=== PATIENT | female | born 1975 | race African-American/Black ===

== ENCOUNTER 2017-11-03 02:49 | Emergency (ER) | payer BC, OTHER ==
--- NOTE | 2017-11-03 03:15 | ER Document Report ---
ED General - General Chief Complaint: Numbness of Face Stated Complaint: NUMBNESS Time Seen by Provider: 11/03/17 03:13 Notes: Patient is a 42-year-old female presents with complaint of onset of a headache around 1030 11 PM. Approximately 30 minutes after that she started having some numbness into the left side of her face and into her left arm. She also has some intermittent blurred vision and feels as if her eyes twitching. She does have a history of migraine headaches. She said back in May she had piercing done in the right urine that made her headaches go away for the most part. She said this first time she has had a significant headache since that piercing. She says her headaches used to be more global worse as well as more left-sided and has associated numbness which she has not had in the past. No vomiting. No fevers. No recent trauma or injuries. No other complaints at this time. TRAVEL OUTSIDE OF THE [place] IN LAST 30 DAYS: No - Related Data Allergies/Adverse Reactions: No Known Allergies Allergy (Unverified 11/03/17 02:52) Past Medical History - Social History Smoking Status: Never Smoker Frequency of alcohol use: None Drug Abuse: None Family History: Reviewed & Not Pertinent Review of Systems - Review of Systems Notes: My Normal Review Basic REVIEW OF SYSTEMS: CONSTITUTIONAL : Denies fever, chills, or sweats. Denies recent illness. EENT: Denies eye, ear, throat, or mouth pain or symptoms. Denies nasal or sinus congestion. CARDIOVASCULAR: Denies chest pain. RESPIRATORY: Denies cough, cold, or chest congestion. Denies shortness of breath, difficulty breathing, or wheezing. GASTROINTESTINAL: Denies abdominal pain. Denies nausea, vomiting, or diarrhea. MUSCULOSKELETAL: Denies neck or back pain or joint pain or swelling. SKIN: Denies rash or skin lesions. HEMATOLOGIC : Denies easy bruising or bleeding. NEUROLOGICAL: Denies altered mental status or loss of consciousness. Has a headache. No weakness in extremities. Patient does have some numbness of the left side of face and into left arm. ALL OTHER SYSTEMS REVIEWED AND NEGATIVE. Physical Exam - Vital signs Vitals: Temp Pulse Resp BP Pulse Ox 97.5 F 68 16 137/92 H 100 11/03/17 02:54 11/03/17 02:54 11/03/17 02:54 11/03/17 02:54 11/03/17 02:54 - Notes Notes: General Appearance: Well nourished, alert, cooperative, no acute distress, no obvious discomfort. No pain. Vitals: reviewed, See vital signs table. Head: no swelling or tenderness to the head Eyes: PERRL, EOMI, Conjuctiva clear Mouth: No decreasd moisture Throat: No tonsillar inflammation, No airway obstruction, No lymphadenopathy Neck: Supple, no neck tenderness, No thyromegaly Lungs: No wheezing, No rales, No rhonci, No accessory muscle use, good air exchange bilaterally. Heart: Normal rate, Regular rythm, No murmur, no rub Abdomen: Normal BS, soft, No rigidity, No abdominal tenderness, No guarding, no rebound, no abdominal masses, no organomegaly Extremities: strength 5/5 in all extremities, good pulses in all extremities, no swelling or tenderness in the extremities, no edema. Skin: warm, dry, appropriate color, no rash Neuro: speech clear, oriented x 3, normal affect, responds appropriately to questions. Cranial nerves II through XII are intact. Patient can feel me touch her face but says that she still has some numbness to the left side of her face. She does have obvious facial twitching just below left eye. Good strength in all 4 extremities. There is no focal weakness on her exam. Patient can feel me touch all 4 extremities however she is says her left hand still feels a little bit numb despite feel me touch. Patient is able stand and walk without any ataxia. Romberg testing is normal. Course - Re-evaluation Re-evalutation: 11/03/17 03:31 The only neurologic deficit the patient has is that she feels some numbness into the left side of her body. She has no associated weakness. Her NIH scale would only be a 1. She is beyond 4 hours since the onset of her symptoms and therefore she is not a candidate for thrombolytics and she is not someone I would recommend thrombolytics and even if she was within the window being that her NIH score is so low. Also, I suspect this is more likely to be related to a complex migraine being that her symptoms start with a migraine type headache first followed by the vague numbness type symptoms in the left side of her body. CT scan has been ordered. Patient will be treated with migraine cocktail to see if there is resolution of her symptoms. 11/03/17 05:12 CT scan is normal. Do not think subarachnoid hemorrhage is a culprit of the patient's headache as the CT scan was performed within 4 hours of onset of headache and is completely negative and the patient does not appear capacitated in the headache worsens over time as opposed to being maximal in onset. I suspect patient probably is a complex migraine that caused her symptoms. I suspect this because she had numbness without any associated weakness and no other focal neurologic deficits, and her numbness completely resolved with treatment of her headache. This time if the patient states be discharged home. I encouraged her return to ER medially if she has recurrent worsening headaches, any focal weakness or numbness, or she has any further concerns. Patient agrees with plan will be discharged home. Dictation of this chart was performed using voice recognition software; therefore, there may be some unintended grammatical errors. - Vital Signs Vital signs: Temp Pulse Resp BP Pulse Ox 98.0 F 56 L 17 110/68 100 11/03/17 04:52 11/03/17 04:52 11/03/17 04:52 11/03/17 04:52 11/03/17 04:52 - EKG Interpretation by Me Additional EKG results interpreted by me: 11/03/17 03:14 EKG is reviewed and interpreted by me. EKG shows sinus rhythm with a rate of [address] segment elevation or depression. No ischemic T-wave inversions. WA interval, QRS duration, QTc intervals are within normal range. No old EKG available for comparison. Discharge - Discharge Clinical Impression: Paresthesia Headache Qualifiers: Headache type: unspecified Headache chronicity pattern: acute headache Intractability: not intractable Qualified Code(s): R51 - Headache Condition: Good Disposition: HOME, SELF-CARE Additional Instructions: Please follow up with your doctor in 2-3 days for reevaluation. Please take the prescribed Reglan with 25mg of Benadryl if you develop a headache. Please return to the ER if your headache continues despite treatment with the medication. Please return to the ER if you ever develop weakness or numbness into your extremities, facial droop, difficulty walking, or difficulty talking. Prescriptions: Metoclopramide HCl [Reglan 10 mg Tablet] 1 tab PO ASDIR PRN #25 tablet PRN Reason: Forms: Return to Work
[2017-11-03] MEDS ORDERED: DIPHENHYDRAMINE HCL 50 MG/ML VIAL IV ONE (03:19)
[2017-11-03] MEDS ORDERED: METOCLOPRAMIDE HCL INJ/PF 10 MG/2 ML SDV IV ONE (03:19)
[2017-11-03] MEDS ORDERED: NORMAL SALINE 500 ML IV ONE (03:20)
--- NOTE | 2017-11-03 03:48 | RADIOLOGY REPORT (SQ) ---
EXAM DESCRIPTION: CT HEAD WITHOUT IV CONTRAST COMPLETED DATE/TME: 11/03/2017 03:18 CLINICAL HISTORY: headache COMPARISON: None available TECHNIQUE: Axial CT of the head obtained from the skull apex to the skull base without contrast. FINDINGS: No acute intracranial hemorrhage identified. No mass, mass effect, shift of the midline, abnormal extra-axial fluid collection or CT evidence of acute ischemic change identified. The ventricular system is unremarkable. No acute abnormalities of the supratentorial white matter, basal ganglia, cerebellum, or brainstem. Air-fluid levels and mucosal thickening of the maxillary sinuses. No skull fracture identified. Visualized orbits and globes are unremarkable. DLP: 1043.77 mGy-cm IMPRESSION: 1. No acute intracranial abnormality identified. 2. Air-fluid levels with mucosal thickening of the paranasal sinuses. These findings could be seen with acute on chronic inflammatory paranasal sinus disease. This exam was performed according to our departmental dose-optimization program, which includes automated exposure control, adjustment of the mA and/or kV according to patient size and/or use of iterative reconstruction technique.
[2017-11-03 04:53] VITALS: BP 110/68
--- NOTE | 2017-11-03 07:22 | EKG REPORT ---
SEVERITY:- OTHERWISE NORMAL ECG - SINUS RHYTHM ATRIAL PREMATURE COMPLEX : Confirmed by: Eze Sotelo MD 03-Nov-2017 07:21:34
== END 2017-11-03 05:25 | disposition home or self-care (01) ==
LOC: ER 02:49
DX: R51 Headache (principal); R20.0 Anesthesia of skin; H53.8 Other visual disturbances; R25.3 Fasciculation
CPT/HCPCS: 93005; 99284; 96361; 96374; 96375; 70450; 93010; J1200; J2765; J7040